=== PATIENT | female | born 1955 | race Caucasian/White ===

== ENCOUNTER 2016-08-15 12:59 | Emergency (ER) | payer OTHER ==
[~2016-08-15] VITALS: Ht 160 cm; Wt 84.0 kg
[2016-08-15 13:07] VITALS: Ht 160 cm; Wt 84.0 kg
[2016-08-15] MEDS ORDERED: LEVALBUTEROL (NEB) 1.25 MG/0.5 ML AMP INH STA (14:29)
[2016-08-15] MEDS ORDERED: IPRATROPIUM (NEB) 0.5 MG/2.5 ML AMP NEB STA (14:29)
--- NOTE | 2016-08-15 15:07 | ERD ---
ER Documentation Chief Complaint Date/Time DATE: 08/15/16 TIME: 15:04 Chief Complaint NEEDS MED REFILL ON ATROVENT. PT ALSO REQUESTING DOSE HERE TODAY. HPI This 60-year-old female who presents the emergency department today for medication refill. Patient states she has a history of COPD with asthma and she is out of her medication for her nebulizer. States that she has been living in a homeless alf but that closed a couple of days ago. Patient states she has had lots of phlegm in her throat and has had a history of chronic bronchitis bronchitis for which she has taken 4 different antibiotics. Denies any fevers or chills. ROS All systems reviewed and are negative except as per history of present illness. Medications Home Meds Active Scripts Albuterol Sulfate* (Ventolin HFA*) 18 Gm Hfa.aer.ad, 2 PUFF INHALATION Q4H, #1 INHALER Prov:ARISTEO SANTOS PA-C 08/15/16 Ipratropium-Albuterol (Ipratropium-Albuterol) 0.5-3 Mg/3 Ml Ampul.neb, 3 ML INHALATION Q6, #30 VIAL Prov:ARISTEO SANTOS PA-C 08/15/16 Albuterol Sulfate* (Albuterol Sulfate* Neb) 0.083%-3 Ml Neb, 2.5 MG NEB Q4 Y for SHORTNESS OF BREATH, #30 EA Prov:ARISTEO SANTOS PA-C 08/15/16 PMhx/Soc History of Surgery: Yes (GALL BLADDER, LT LUNG) Anesthesia Reaction: No Hx Neurological Disorder: No Hx Respiratory Disorders: Yes (COPD, ASTHMA) Hx Cardiac Disorders: Yes (HTN, HDL) Hx Psychiatric Problems: Yes (DEPRESSION, ANXIETY) Hx Miscellaneous Medical Probl: No Hx Alcohol Use: No Hx Substance Use: No Hx Tobacco Use: No Smoking Status: Never smoker Physical Exam Vitals Vital Signs Date Time Temp Pulse Resp B/P Pulse Ox O2 Delivery O2 Flow Rate FiO2 08/15/16 15:08 107 19 97 21 08/15/16 13:07 97.8 107 19 124/78 97 Physical Exam Const: NAD Head: Atraumatic Eyes: Normal Conjunctiva ENT: Normal External Ears, Nose and Mouth. Neck: Full range of motion..~ No meningismus. Resp: Clear to auscultation bilaterally. No absent breath sounds. No wheezing. Cardio: Regular rate and rhythm, no murmurs Abd: Soft, non tender, non distended. Normal bowel sounds Skin: No petechiae or rashes Neur: Awake and alert Psych: Normal Mood and Affect Results 24 hrs Current Medications Medications (Trade) Dose Ordered Sig/Xiomara Route PRN Reason Start Time Stop Time Status Last Admin Dose Admin Ipratropium Mcnabb (Atrovent 0.02% (Neb)) 0.5 mg ONCE STAT NEB 08/15/16 14:29 08/15/16 14:31 DC 08/15/16 15:05 Levalbuterol (Xopenex Neb) 1.25 mg ONCE STAT INH 08/15/16 14:29 08/15/16 14:31 DC 08/15/16 15:05 Procedures/MDM This 60-year-old female who presents emergency department today for medication refill of her asthma medications. Patient was also requesting a breathing treatment here in the emergency department. Patient is afebrile and otherwise well-appearing and her oxygen saturation is 97%. I do not feel that she requires a chest x-ray at this time. Low suspicion for pneumonia, PE, abscess, pleural effusion, pneumothorax. I did give the patient a breathing treatment here. Patient was also given a refill on her albuterol and ipratropium for her nebulizer as well as Ventolin. I did ask the patient where she was going to be living and I attempted to help the patient find a local primary care physician as she takes several medications for multiple comorbidities however patient indicated "I do not need a doctor and if I needed one I would have gone to one earlier". Patient stated "I do not need to be lectured, and I know my health better than you do and I have been sick since the day I was born". I did also offer the patient any further medication refills on any of her medications and she declined at this time. At this time the patient is stable for discharge and outpatient management. Patient should follow up with their PCP in the next 1-2 days. They may return to the emergency department sooner for any persistent or worsening of symptoms. Patient understood and agreed with the plan. Departure Diagnosis: Primary Impression: Asthma Asthma severity: unspecified severity Asthma complication type: uncomplicated Qualified Code: J45.909 - Uncomplicated asthma, unspecified asthma severity Additional Impression: Encounter for medication refill Condition: ARISTEO Yang PA-C Aug 15, 2016 15:07
[2016-08-15] MEDS ORDERED: ALBU2.5V3 NEB (15:11)
[2016-08-15] MEDS ORDERED: IPRA3AMP INHALATION (15:13)
[2016-08-15] MEDS ORDERED: ALBU18HF INHALATION (15:14)
== END 2016-08-15 15:30 | disposition home or self-care (01) ==
LOC: FTE 12:59
DX: J45.909 Unspecified asthma, uncomplicated (principal); J44.9 Chronic obstructive pulmonary disease, unspecified; I10 Essential (primary) hypertension
CPT/HCPCS: 94664; Z7502; Z7610